=== PATIENT | female | born 1965 | race Caucasian/White ===

== ENCOUNTER 2022-12-13 11:27 | Outpatient (REF) | payer MEDICAID, SELFPAY ==
[2022-12-13 14:03] LABS: MCHC 34.1 % (32.0-36.0); MCV 85 fL (80-95); MPV 9.5 fL (8.0-11.0); Platelet Count 264 10^3/uL (130-400); RBC 4.83 10^6/uL (3.93-5.22); RDW 12.4 % (11.7-14.6); RDW-SD 38.6 fL; WBC 5.21 10^3/uL (4.4-10.8)
[2022-12-13 14:33] LABS: ALT 27 U/L (14-59); AST 27 U/L (15-37); Alkaline Phosphatase 73 U/L (46-116); Anion Gap 7.6 mmol/L (3-11); BUN 12 mg/dL (7-18); Bilirubin, Total 0.8 mg/dL (0.2-1.0); CO2 28.4 mmol/L (21.0-32.0); CREATININE 0.7 mg/dL (0.55-1.02); Calcium 9.3 mg/dL (8.5-10.1); Calculated LDL 153 mg/dL (<100); Chloride 104 mmol/L (98-107); Cholesterol 230 mg/dL (<200); Estimated GFR 102.07 (mL/min/1.73m2); Glucose 101 mg/dL (74-106); HDL Cholesterol 48 mg/dL (40-60); Potassium 3.9 mmol/L (3.5-5.1); Sodium 140 mmol/L (136-145); TSH (W/Ref FT4) 0.07 uIU/mL (0.36-3.74); Total Protein 7.2 g/dL (6.4-8.2); Triglyceride 147 mg/dL (<150)
[2022-12-13 14:58] LABS: FREE T4 1.42 ng/dL (0.76-1.46)
[2022-12-14 12:53] LABS: Chlamydia Result Negative (Negative); GC Result Negative (Negative)
== END 2022-12-13 11:28 | disposition home or self-care (01) ==
LOC: NCHCN 11:27
PROVIDERS: Visit Provider Family Medicine
DX: Z11.3 Encounter for screening for infections with a predominantly sexual mode of transmission (principal); Z12.11 Encounter for screening for malignant neoplasm of colon; E03.9 Hypothyroidism, unspecified; Z28.21 Immunization not carried out because of patient refusal; Z85.6 Personal history of leukemia; Z85.850 Personal history of malignant neoplasm of thyroid; Z00.00 Encounter for general adult medical examination without abnormal findings
CPT/HCPCS: 80053; 80061; 82306; 85027; 87491; 87591; 84439; 84443

== ENCOUNTER 2023-02-14 15:26 | Outpatient (REF) | payer MEDICAID, SELFPAY ==
[2023-02-14 15:27] LABS: TSH 1.29 uIU/mL (0.36-3.74)
[2023-02-16 10:27] LABS: HIV-1/2 Ag & Ab Screen Negative (Negative)
[2023-02-17 10:49] LABS: Syphilis Serology (RPR) Negative (Negative)
== END 2023-02-14 15:27 | disposition home or self-care (01) ==
LOC: NCHCN 15:26
PROVIDERS: Visit Provider Family Medicine
DX: E89.0 Postprocedural hypothyroidism (principal); Z20.2 Contact with and (suspected) exposure to infections with a predominantly sexual mode of transmission; Z11.3 Encounter for screening for infections with a predominantly sexual mode of transmission; Z11.4 Encounter for screening for human immunodeficiency virus [HIV]
CPT/HCPCS: 87389; 84443; 86592